=== PATIENT | female | born 1990 | race Caucasian/White ===

== ENCOUNTER 2017-04-03 20:16 | Emergency (ER) | payer BC ==
[2017-04-03 20:33] VITALS: BP 129/50
[2017-04-03] MEDS ORDERED: OMEP20TA63 PO (21:02)
--- NOTE | 2017-04-03 21:02 | PHYS DOC ---
Past History Past Medical History: Other Past Surgical History: No Surgical History Alcohol Use: None Drug Use: None Adult General Chief Complaint Chief Complaint: SORE THROAT HPI HPI 26-year-old female now presents to the emergency department complaining of sore throat. She thinks she might have a throat infection. Should insist that her tonsils looked different than they normally do. Last time she was here she had the same situation and no one did anything for her and then within 24 hours she was very ill with sore throat.. Patient states she noticed that there is some pits on her tonsils and they weren't there previously. She has no fevers chills sweats or shaking chills. No headache or stiff neck. No productive cough or fever. Otherwise asymptomatic. Review of Systems Review of Systems Constitutional: Denies fever or chills [] Eyes: Denies change in visual acuity, redness, or eye pain [] HENT: Denies nasal congestion or sore throat [] Respiratory: Denies cough or shortness of breath [] Cardiovascular: No additional information not addressed in HPI [] GI: Denies abdominal pain, nausea, vomiting, bloody stools or diarrhea [] : Denies dysuria or hematuria [] Musculoskeletal: Denies back pain or joint pain [] Integument: Denies rash or skin lesions [] Neurologic: Denies headache, focal weakness or sensory changes [] Endocrine: Denies polyuria or polydipsia [] Current Medications Current Medications Current Medications Medications (Trade) Dose Ordered Sig/Dequan Start Time Stop Time Status Last Admin Dose Admin Multi-Ingredient Mouthwash/Gargle (Gi Cocktail) 20 ml 1X ONCE 04/03/17 21:15 04/03/17 21:16 Allergies Allergies Allergies Coded Allergies Type Severity Reaction Last Updated Verified No Known Allergies Allergy Unknown 04/03/17 Yes Physical Exam Physical Exam Well-appearing 26-year-old female no acute distress sitting what appears to be in complete comfort. Patient immediately states she wants to leave because were "not going to do anything "for her anyway. She has a normal oropharynx with normal-appearing tonsils no erythema or exudate. His completely normal generalized exam Constitutional: Well developed, well nourished, no acute distress, non-toxic appearance. [] HENT: Normocephalic, atraumatic, bilateral external ears normal, oropharynx moist, no oral exudates, nose normal. [] Eyes: , EOMI, conjunctiva normal, no discharge. [] Neck: Normal range of motion, no tenderness, supple, no stridor. [] Cardiovascular: No tachycardia in triage Lungs & Thorax: Normal respiratory rate with normal and symmetrical chest wall excursion and normal respiratory effort [] Abdomen: Nondistended abdomen Skin: Warm, dry, no erythema, no rash. [] Back: No tenderness, no CVA tenderness. [] Extremities: no cyanosis, no clubbing, ROM intact, no edema. [] Neurologic: Alert and oriented X 3, normal motor function, no focal deficits noted. [] Psychologic: Affect normal, mood normal. [] Current Patient Data Vital Signs Vital Signs Date Time Temp Pulse Resp B/P (MAP) Pulse Ox O2 Delivery O2 Flow Rate FiO2 04/03/17 20:33 98.3 74 20 98 Room Air EKG EKG [] Radiology/Procedures Radiology/Procedures [] Course & Med Decision Making Course & Med Decision Making Pertinent Labs and Imaging studies reviewed. (See chart for details) Patient was completely normal exam specifically no abnormality whatsoever regarding her oropharyngeal exam. Patient insists that her tonsils are normal- appearing and that the pets in her tonsils just appeared. Reassured her that pits in the tonsils are normal and there are characteristic appearance is specific to the person. After mentioning this to her she immediately said "they could be filled with pus in just a few hours. "Told her she could develop strep throat but she had no clinical signs of it now and that if she was concerned we would check a rapid strep to rule out the possibility of early evolving strep throat. Patient refused this and stated she was going to "go somewhere else. "She was quite aware that I was offering to do the rapid strep and treat her if it was indicated however for some reason this was not adequate for this patient and she insisted on leaving AGAINST MEDICAL ADVICE. Before she left and mentioned that it did not make sense for her to leave without rapid strep testing if the reason she came was because of her concerns about possible strep throat. The patient responded "I don't care about making sense, I care about leaving and going to another hospital. "I suspect the patient had some other agenda which she anticipated would not be fulfilled but she was unwilling to communicate anything further and signed out AGAINST MEDICAL ADVICE. He should wear the risks including or permanent disability [] Dragon Disclaimer Dragon Disclaimer This chart was dictated in whole or in part using Voice Recognition software in a busy, high-work load, and often noisy Emergency Department environment. It may contain unintended and wholly unrecognized errors or omissions. Departure Departure: Impression: Primary Impression: Gastritis Disposition: HOME, SELF-CARE Condition: GOOD Referrals: KRISTAL YATES MD (PCP) Patient Instructions: Gastritis, Adult Additional Instructions: You have symptoms of mild gastritis. Take medicines with food. Use prilosec as prescribed. Follow up with your doctor in 1-2 days. Return for new or severe symptoms. Scripts Omeprazole Magnesium (PRILOSEC OTC) 20 Mg Tablet.dr 1 TAB PO DAILY, #21 TAB 3 Refills Prov: AMY BUITRAGO MD 04/03/17 AMY BUITRAGO MD Apr 03, 2017 21:02
[2017-04-03] MEDS ORDERED: LIDO:MAALOX 1:1 20 ML SINGLE DOSE PO ONE (21:15)
== END 2017-04-03 21:10 | disposition home or self-care (01) ==
LOC: ER 20:16
DX: K29.70 Gastritis, unspecified, without bleeding (principal)
CPT/HCPCS: 99283